=== PATIENT | male | born 1975 | race Caucasian/White ===

== ENCOUNTER 2020-07-31 22:19 | Emergency (ER) | payer OTHER ==
[2020-07-31 22:31] VITALS: BP 131/77; PULSE 87; RESP 18; TEMP 98.6
[2020-07-31] MEDS ORDERED: SODIUM CHLORIDE 0.9% 1,000 ML IV STA (22:54)
[2020-07-31] MEDS ORDERED: KETOROLAC 15 MG/ML 1 ML VIAL IVP STA (22:54)
[2020-07-31 23:26] LABS: ALT 15 U/L (4-49); AST 18 U/L (17-59); African American GFR (CKD) >90 (>60 ml/min/1.73 sqM); Alkaline Phosphatase 65 U/L (38-126); Amylase 47 U/L (30-110); Anion Gap 6 mmol/L; Blood Urea Nitrogen 20 mg/dL (9-20); Calcium 9.5 mg/dL (8.4-10.2); Carbon Dioxide 27 mmol/L (22-30); Chloride 101 mmol/L (98-107); Glucose 186 mg/dL (74-99); Non-African American GFR(CKD) >90 (>60 ml/min/1.73 sqM); Potassium 4.5 mmol/L (3.5-5.1); Sodium 134 mmol/L (137-145); Total Bilirubin 0.3 mg/dL (0.2-1.3); Total Protein 6.7 g/dL (6.3-8.2)
[2020-07-31 23:30] LABS: Basophils # (A) 0.1 k/uL (0-0.2); Basophils % (A) 1 %; Eosinophils # (A) 0.3 k/uL (0-0.7); Eosinophils % (A) 2 %; HCT 44.6 % (39.0-53.0); HGB 14.8 gm/dL (13.0-17.5); Lymphocytes % (A) 42 %; MCH 29.5 pg (25.0-35.0); MCHC 33.1 g/dL (31.0-37.0); MCV 89.1 fL (80.0-100.0); Mean Platelet Volume 8.3; Monocytes # (A) 0.7 k/uL (0-1.0); Monocytes % (A) 5 %; Neutrophils # (A) 7.6 k/uL (1.3-7.7); Neutrophils % (A) 49 %; Platelet Count 231 k/uL (150-450); RDW 14.3 % (11.5-15.5); WBC 15.5 k/uL (3.8-10.6)
[2020-07-31] MEDS ORDERED: HYDROmorphone 1 MG/ML 1 ML SYRINGE IVP STA (23:37)
[2020-07-31] MEDS ORDERED: ONDANSETRON 4 MG/2 ML VIAL IVP STA (23:37)
--- NOTE | 2020-07-31 23:48 | US ---
EXAMINATION TYPE: US scrotum with doppler. Grayscale and color Doppler Duplex imaging performed of drake sanders scrotum. DATE OF EXAM: 07/31/2020 COMPARISON: NONE CLINICAL HISTORY: Left testicular and groin pain. Left testicular and groin pain x 2 hours. EXAM MEASUREMENTS: TESTICLES: Right Testicle: 4.1 x 2.0 x 1.8 cm Left Testicle: 3.7 x 2.3 x 2.1 cm *Anechoic area seen within the left testicle measurin.3 x 0.3 x 0.3 cm. EPIDIDYMIS HEAD: Right Epididymis: 0.8 x 0.9 x 0.7 cm Left Epididymis: 0.6 x 1.1 x 1.2 cm Doppler performed to assess for testicular vascularity; bilateral color flow and waveforms are seen. Presence of hydroceles: right: 2.3 x 0.7 x 0.4 cm. left: 1.6 x 0.7 x 1.1 cm. Presence of varicoceles: Vessels measure up to 1.7 mm on the left. IMPRESSION: No testicular torsion. Small cyst in the left testicle of doubtful significance. Small bilateral hydr oceles.
[2020-08-01 00:18] LABS: Appearance,Urine Clear (Clear); Bilirubin,Urine Negative (Negative); Blood,Urine Negative (Negative); Color,Urine Yellow; Glucose,Urine (UA) 4+ (Negative); Ketones,Urine Negative (Negative); Leukocyte Esterase,Urine Negative (Negative); Nitrite,Urine Negative (Negative); PH, Urine 5.5 (5.0-8.0); Protein,Urine Negative (Negative); Specific Gravity,Urine 1.019 (1.001-1.035); Urobilinogen,Urine <2.0 mg/dL (<2.0)
--- NOTE | 2020-08-01 00:56 | CT ---
EXAMINATION TYPE: CT abdomen pelvis wo con DATE OF EXAM: 08/01/2020 COMPARISON: None HISTORY: Right Flank Pain CT DLP: 1444 mGycm Automated exposure control for dose reduction was used. Lung bases are clear. There is no pleural effusion. Heart size is normal. There is no pericardial eff usion. Liver spleen stomach pancreas gallbladder appear normal. Bile ducts are not dilated. There is no adrenal mass. Kidneys show normal size and contour. There is no hydronephrosis. Ureters a re not dilated. There is no retroperitoneal adenopathy. There are clips apparently from appendectomy. Bladder is almost empty. There is minimal prostate calcification. There is no inguinal hernia. There is no free fluid in the pelvis. There is calcified splenic granuloma. There is no mesenteric edema. There is no ascites or free air. There is no bowel obstruction. Lumbar vertebra have normal alignment. Disc spaces are fairly normal. There is no compression fracture. The bony pelvis is intact. IMPRESSION: Negative CT scan abdomen and pelvis. No evidence of renal stone or obstruction. Appendix not seen. No sign of appendicitis. I do not see a cause for left lower quadrant pain.
[2020-08-01 01:07] LABS: Lymphocytes # (A) 6.5 k/uL (1.0-4.8)
--- NOTE | 2020-08-01 01:25 | ED ---
Male Urogenital HPI - General Chief complaint: Urogenital Stated complaint: urogenital Time Seen by Provider: 07/31/20 22:50 Source: patient Mode of arrival: ambulatory Limitations: no limitations - History of Present Illness Initial comments: 45-year-old male patient presents to the emergency department today for evaluation of left testicular pain. Patient states earlier today he started with a dull ache to the left testicle which gradually worsened. Patient states he now feels that a "car is sitting on the left testicle". Patient denies any heavy lifting or injury. Denies any hematuria, dysuria, urinary frequency, urinary urgency. Patient states he is having dental ache to the left flank radiating down to the left lower quadrant and into the testicle. Denies history of similar symptoms. He denies any history of testicular surgery. Patient denies any nausea, vomiting, constipation, or diarrhea. Denies fever or chills. Patient denies any recent rash, cough, shortness of breath, chest pain, numbness, tingling, dizziness, weakness, headache, visual changes, or any other complaints. - Related Data Allergies Allergy/AdvReac Type Severity Reaction Status Date / Time No Known Allergies Allergy Verified 07/31/20 22:31 Review of Systems ROS Statement: Those systems with pertinent positive or pertinent negative responses have been documented in the HPI. ROS Other: All systems not noted in ROS Statement are negative. Past Medical History Past Medical History: No Reported History History of Any Multi-Drug Resistant Organisms: None Reported Past Surgical History: Orthopedic Surgery Past Psychological History: No Psychological Hx Reported Smoking Status: Current every day smoker Past Alcohol Use History: Occasional Past Drug Use History: Marijuana General Exam Limitations: no limitations General appearance: alert, in no apparent distress, other (This is a well- developed, well-nourished adult male patient in no acute distress. Vital signs upon presentation are temperature 98.6F, pulse 87, respirations 18, blood pressure 131/77, pulse ox 99% on room air.) Eye exam: Present: normal appearance, PERRL, EOMI. Absent: scleral icterus, conjunctival injection, periorbital swelling ENT exam: Present: normal exam, normal oropharynx, mucous membranes moist Respiratory exam: Present: normal lung sounds bilaterally. Absent: respiratory distress, wheezes, rales, rhonchi, stridor Cardiovascular Exam: Present: regular rate, normal rhythm, normal heart sounds. Absent: systolic murmur, diastolic murmur, rubs, gallop, clicks GI/Abdominal exam: Present: soft, normal bowel sounds. Absent: distended, tenderness, guarding, rebound, rigid exam: Present: normal inspection, other (Left inguinal tenderness, no evidence for hernia, no lymphadenopathy. Edelmira Alonso RN is phys ther.). Absent: testicular tenderness, scrotal swelling Back exam: Present: normal inspection, CVA tenderness (L). Absent: CVA tenderness (R) Neurological exam: Present: alert, oriented X3, CN II-XII intact Psychiatric exam: Present: normal affect, normal mood Skin exam: Present: warm, dry, intact, normal color. Absent: rash Course Vital Signs 07/31/20 22:29 Temperature 98.6 F Pulse Rate 87 Respiratory 18 Rate Blood Pressure 131/77 O2 Sat by Pulse 99 Oximetry Medical Decision Making - Medical Decision Making 45-year-old male patient presented to the emergency department today for evaluation of left flank and left testicular pain. Physical examination did reveal left CVA tenderness. There is no swelling or tenderness over the left testicle but there was some tenderness over the inguinal region. No evidence for lymphadenopathy or hernia. Labs reviewed and did reveal leukocytosis with white blood cell count at 15.5. Urinalysis showed no sign of infection. Remainder of labs are unremarkable. Scrotal ultrasound was obtained and showed no evidence for torsion, he did have mild bilateral hydroceles and a benign cyst present. CT abdomen and pelvis without contrast was obtained and showed no acute abnormalities and no signs of the patient's pain. I did discuss findings and results with him. He'll be discharged back to [facility] with instructions to follow-up with his primary care physician and urology for further evaluation. Return parameters discussed in detail. He verbalizes understanding and agrees with this plan. - Lab Data Result diagrams: 07/31/20 23:03 07/31/20 23:03 Lab Results 07/31/20 07/31/20 07/31/20 Range/Units 00:13 23:03 23:03 WBC 15.5 H (3.8-10.6) k/uL RBC 5.00 (4.30-5.90) m/uL Hgb 14.8 (13.0-17.5) gm/dL Hct 44.6 (39.0-53.0) % MCV 89.1 (80.0-100.0) fL MCH 29.5 (25.0-35.0) pg MCHC 33.1 (31.0-37.0) g/dL RDW 14.3 (11.5-15.5) % Plt Count 231 (150-450) k/uL Neutrophils % 49 % Lymphocytes % 42 % Monocytes % 5 % Eosinophils % 2 % Basophils % 1 % Neutrophils # 7.6 (1.3-7.7) k/uL Lymphocytes # 6.5 H (1.0-4.8) k/uL Monocytes # 0.7 (0-1.0) k/uL Eosinophils # 0.3 (0-0.7) k/uL Basophils # 0.1 (0-0.2) k/uL Sodium 134 L (137-145) mmol/L Potassium 4.5 (3.5-5.1) mmol/L Chloride 101 (98-107) mmol/L Carbon Dioxide 27 (22-30) mmol/L Anion Gap 6 mmol/L BUN 20 (9-20) mg/dL Creatinine 0.80 (0.66-1.25) mg/dL Est GFR (CKD-EPI)AfAm >90 (>60 ml/min/1.73 sqM) Est GFR (CKD-EPI)NonAf >90 (>60 ml/min/1.73 sqM) Glucose 186 H (74-99) mg/dL Calcium 9.5 (8.4-10.2) mg/dL Total Bilirubin 0.3 (0.2-1.3) mg/dL AST 18 (17-59) U/L ALT 15 (4-49) U/L Alkaline Phosphatase 65 (38-126) U/L Total Protein 6.7 (6.3-8.2) g/dL Albumin 4.0 (3.5-5.0) g/dL Amylase 47 (30-110) U/L Lipase 146 (23-300) U/L Urine Color Yellow Urine Appearance Clear (Clear) Urine pH 5.5 (5.0-8.0) Ur Specific [place] 1.019 (1.001-1.035) Urine Protein Negative (Negative) Urine Glucose (UA) 4+ H (Negative) Urine Ketones Negative (Negative) Urine Blood Negative (Negative) Urine Nitrite Negative (Negative) Urine Bilirubin Negative (Negative) Urine Urobilinogen <2.0 (<2.0) mg/dL Ur Leukocyte Esterase Negative (Negative) - Radiology Data Radiology results: report reviewed, image reviewed CT abdomen and pelvis without contrast was obtained. Report was reviewed in its entirety. Impression by Dr. Cash shows negative computed tomography scan abdomen and pelvis. No evidence of renal stone or obstruction. Appendix not seen. No sign of appendicitis. I do not see a sign for left lower quadrant pain. Ultrasound of the scrotum with Doppler was performed. Report was reviewed in its entirety. Impression by Dr. Cash shows no testicular torsion. Small cyst in the left testicle of doubtful significance. Small bilateral hydroceles. Disposition Clinical Impression: Bilateral hydrocele, Testicular pain, Flank pain Disposition: HOME SELF-CARE Condition: Good Instructions (If sedation given, give patient instructions): Testicle Pain (ED), Flank Pain (ED) Additional Instructions: Follow-up with your primary care physician and urologist for further evaluation as soon as possible. Return to the emergency department immediately for any new, worsening, or concerning symptoms. Is patient prescribed a controlled substance at d/c from ED?: No Referrals: Ruslan Manriquez MD [STAFF PHYSICIAN] - 1-2 days Time of Disposition: 01:25
== END 2020-08-01 01:40 | disposition home or self-care (01) ==
LOC: EC 22:19
DX: N43.3 Hydrocele, unspecified (principal); N50.812 Left testicular pain; N44.2 Benign cyst of testis; D72.829 Elevated white blood cell count, unspecified; F17.200 Nicotine dependence, unspecified, uncomplicated; R10.9 Unspecified abdominal pain
CPT/HCPCS: 99284 ×2; 96374 ×2; 96375 ×3; 96361 ×2; 36415; 80053; 82150; 83690; 85025; 81003; 93975; 76870; 74176; J2405; J1170; J1885